=== PATIENT | female | born 1970 | race Caucasian/White ===

== ENCOUNTER 2020-09-12 21:41 | Observation (INO) | payer OTHER ==
[~2020-09-12] VITALS: Ht 167.6 cm; Wt 106.8 kg
[2020-09-12 22:17] LABS: BASOPHILS ABSOLUTE AUTO 0.04 K/mm3 (0.00-0.23); BASOPHILS PERCENT AUTO 0 % (0-2); EOSINOPHILS ABSOLUTE AUTO 0.11 K/mm3 (0.00-0.68); EOSINOPHILS PERCENT AUTO 1 % (0-6); Hematocrit 44.7 % (33.0-51.0); Hemoglobin 14.3 g/dL (11.5-16.0); IMMATURE GRAN ABSOLUTE AUTO 0.03 K/mm3 (0.00-0.10); IMMATURE GRAN PERCENT AUTO 0 % (0-1); LYMPHOCYTES ABSOLUTE AUTO 1.29 K/mm3 (0.84-5.20); LYMPHOCYTES PERCENT AUTO 14 % (21-46); MONOCYTES ABSOLUTE AUTO 0.51 K/mm3 (0.16-1.47); MONOCYTES PERCENT AUTO 6 % (4-13); Mean Corpuscular Volume 91 fL (80-100); NEUTROPHILS ABSOLUTE AUTO 7.37 K/mm3 (1.96-9.15); NEUTROPHILS PERCENT AUTO 79 % (41-73); Platelet Count 255 K/mm3 (150-400); RDW Coefficient Variation 12.2 % (11.7-14.2); RDW Standard Deviation 40.6 fL (35.1-46.3); Red Blood Cell Count 4.93 M/mm3 (3.80-5.20); White Blood Cell Count 9.35 K/mm3 (4.00-11.30)
[2020-09-12 22:24] LABS: Source, Urine Clean Catch
[2020-09-12 22:26] LABS: Blood, Urine 2+ (Neg); Glucose Qualitative, Urine Neg (Neg); Ketones, Urine 2+ (Neg); Leukocyte Esterase, Urine 2+ (Neg); Nitrite, Urine Neg (Neg); Protein, Urine 2+ (Neg); Urobilinogen, Urine 1+ (Normal)
[2020-09-12 22:36] LABS: Alanine Aminotransfer (ALT/SGP 13 U/L (12-78); Albumin, Blood 3.6 g/dL (3.4-5.0); Alk Phos 73 U/L (50-136); Anion Gap 6 mmol/L (6-16); Aspartate Aminotrans (AST/SGOT 13 U/L (12-37); Bilirubin, Total 0.7 mg/dL (0.1-1.0); Blood Urea Nitrogen 9 mg/dL (8-24); Bun/Creatinine Ratio 11.7 (12.0-20.0); CO2, Blood 28 mmol/L (21-32); Calcium, Blood 9.2 mg/dL (8.5-10.1); Chloride, Blood 107 mmol/L (98-108); Creatinine, Blood 0.77 mg/dL (0.40-1.00); Globulin, Blood 3.6 g/dL (2.2-4.0); Glomerular Filtration Rate >60 (60-); Glucose, Blood 104 mg/dL (70-99); Potassium, Blood 3.5 mmol/L (3.5-5.5); Sodium, Blood 141 mmol/L (136-145); Total Protein, Blood 7.2 g/dL (6.4-8.2)
[2020-09-12 22:58] LABS: Appearance, Urine Hazy (Clear); Bilirubin, Urine 1+ (Neg); Color, Urine Yellow (P-Yellow)
[2020-09-12 22:59] LABS: Amorphous Mod (0-Heavy); Bacteria Mod /hpf; Red Blood Cells, Urine 0-2 /hpf (0-2); Squamous Epithelial Cells Rare /hpf (Few)
[2020-09-13] MEDS ORDERED: ATEN25 PO (00:37)
[2020-09-13] MEDS ORDERED: GABA300 PO (00:37)
[2020-09-13] MEDS ORDERED: VICODIN HP 10-1 EAC1 PO (00:38)
[2020-09-13] MEDS ORDERED: Robaxin750 MG PO (03:27)
[2020-09-13 03:57] LABS: Influenza A, PCR Negative (NEGATIVE); Influenza B, PCR Negative (NEGATIVE); Resp Syncytial Virus, PCR Negative (NEGATIVE); SARS-Cov-2 (COVID-19) PCR, MMC Negative (NEGATIVE)
--- NOTE | 2020-09-13 04:56 | NUR ---
SHIFT SUMMARY PT ARRIVED TO ROOM 210 AT ABOUT 0315. PT IS A/O X4. SBA WHEN UP. UPON ARRIVAL PT DENIED N/V AND PAIN, SHE WAS MEDICATED IN THE ED AND REPORTS MEDICATIONS WORKING WELL. PT ORIENTED TO ROOM AND CALL LIGHT. HAS BEEN NPO FOR SURGERY TODAY. IV FLUIDS INFUSING PER ORDERS. HR HAS BEEN TACHY; PT REPORTS HER HR NATURALLY RUNS TACHY AND SHE TAKES ATENOLOL FOR IT AT BASELINE - DID NOT TAKE 12/4 AM. PT RESTING AT THIS TIME WITH CALL LIGHT IN REACH.
--- NOTE | 2020-09-13 18:23 | NUR ---
SHIFT SUMMARY PT A&OX4, VSS, S/P LAP CLAY, 4 LAP SITES, CDI. PAIN MANAGED WITH 0.5 MG DILAUDID AND 5 MG NORCO. GABRIELA PO CLEAR LIQ DIET, DENIES N&V. VOIDING WELL. AMBULATING WITH SBA TO BRP. WILL REPORT TO ONCOMING NOC AMEENA.
--- NOTE | 2020-09-14 06:09 | NUR ---
SHIFT SUMMARY POD#1. AAOX4. ABD INCISIONS WITH GAUZE C/D/I. DISCOMFORT CONTROLLED WITH BASELINE 1 NORCO Q4H + 0.5MG IV DILAUDID FOR BREAKTHROUGH. NO NAUSEA/EMESIS. PT SALINE LOCKED. INDEPENDENT IN ROOM. GOOD PO INTAKE + OUTPUT. PT RESTED WELL T/O NIGHT WITH CALL LIGHT IN REACH.
[2020-09-14] MEDS ORDERED: HYDACE10B PO (11:32)
--- NOTE | 2020-09-14 12:10 | NUR ---
SHIFT SUMMARY PT A&OX4, VSS, WALKED OFF FLOOR (DECLINED WC) WITH , WITH ALL PERSONAL POSSESSIONS, INCLUDING DC PACKET AND 1 NARC SCRIPT. DC INSTRUCTIONS PROVIDED. PT REP UDNERSTANDING THOSE INSTRUCTIONS INCLUDING FU WITH SURGEON 2 WKS, OKAY TO SHOWER, NO TUB/JACUZZI, LEAVE STERIS IN PLACE (COME OFF ON THEIR OWN). IV DC'D.
== END 2020-09-14 12:06 | disposition home or self-care (01) ==
LOC: ER 21:41 → SURS 21:42
PROVIDERS: Emergency Medicine; Physician Assistant; ADMIT Surgery
DX: K80.00 Calculus of gallbladder with acute cholecystitis without obstruction (principal); F17.210 Nicotine dependence, cigarettes, uncomplicated; Z20.828 Contact with and (suspected) exposure to other viral communicable diseases; Z23 Encounter for immunization; Z79.899 Other long term (current) drug therapy
CPT/HCPCS: 0241U; 74176; 74300; 76705; 80053; 81001; 83690; 85025; 87086; 96365; 96375; 96376; 99285-25; A9270-GY; C1729; G0378; J1100; J1170; J1885; J2060; J2250; J2370; J2405; J2543; J2704; J3010; J7030; J7120

== ENCOUNTER 2021-03-31 06:07 | Day surgery (SDC) | payer OTHER ==
[~2021-03-31] VITALS: Ht 167.6 cm; Wt 110.0 kg
[~2021-03-31 06:07] MED LIST: ATEN25 PO; FURO20 PO; GABA300 PO; HYDACE10B PO; PREG100 PO; Robaxin750 MG PO; SUMA25 PO; SYMBICORT 80-10.2 GM INH; TRAM50 PO; VICODIN HP 10-1 EAC1 PO
[2021-03-31] MEDS ORDERED: Prednisone10 MG PO (06:35)
--- NOTE | 2021-03-31 10:25 | NUR ---
ABD BINDER IN PLACE, DRG C/D/I. PAIN CONTROLLED, TOLERATED PO CRACKERS AND WATER WELL, NO C/O NAUSEA. PT UP TO EDGE OF BED AND STANDING W/O DIZZINESS, LIGHTHEADEDNESS. Discharge instructions reviewed with patient. Patient verbalizes understanding. Copy given to patient to take home. Discharged via wheelchair to private car for ride home.
--- NOTE | 2021-03-31 16:01 | NUR ---
03/31/21 1601 Mackenzie Faith VERIFICATIONS: EDIT CHART.
== END 2021-03-31 10:28 | disposition home or self-care (01) ==
LOC: ORSCMMR 06:07 → ORD 07:30 → ORSCMMR 07:30
PROVIDERS: Surgery
PROC: 0WUF0JZ Supplement Abdominal Wall with Synthetic Substitute, Open Approach (ICD-10-PCS; principal; 2021-03-31 07:30)
DX: K43.2 Incisional hernia without obstruction or gangrene (principal); I10 Essential (primary) hypertension; J44.9 Chronic obstructive pulmonary disease, unspecified; F17.210 Nicotine dependence, cigarettes, uncomplicated; E66.01 Morbid (severe) obesity due to excess calories; Z68.39 Body mass index [BMI] 39.0-39.9, adult; M79.7 Fibromyalgia; Z79.899 Other long term (current) drug therapy
CPT/HCPCS: A9270; C1781; J0690; J1100; J1885; J2250; J2370; J2405; J2704; J3010; J7120